=== PATIENT | male | born 1990 | race Two or more races ===

== ENCOUNTER 2025-01-14 09:32 | Emergency (ER) | payer OTHER ==
[~2025-01-14] VITALS: Ht 180.3 cm; Wt 97.5 kg
[2025-01-14] MEDS ORDERED: ADULT LOW DOSE81 M1 (10:32)
[2025-01-14] MEDS ORDERED: ORALONE5 GM TOP (10:54)
[2025-01-14] MEDS ORDERED: METHYLPREDNISOLONE SOD SUCC 40 MG VIAL ONE (10:54)
[2025-01-14] MEDS ORDERED: METHYLPREDNISOLONE SOD SUCC 40 MG VIAL IM ONE (11:00)
== END 2025-01-14 11:07 | disposition home or self-care (01) ==
LOC: ER 09:32
DX: R21 Rash and other nonspecific skin eruption (principal); L20.89 Other atopic dermatitis

== ENCOUNTER 2025-03-10 19:44 | Emergency (ER) | payer OTHER ==
[~2025-03-10] VITALS: Ht 180.3 cm; Wt 99.8 kg
[~2025-03-10 19:44] MED LIST: ADULT LOW DOSE81 M1; ORALONE5 GM TOP
[2025-03-10] MEDS ORDERED: VENOFLASH (19:59)
[2025-03-10] MEDS ORDERED: ENOXAPARIN SODIUM 100 MG/ML SYRINGE SUBCUTANEO SCH (22:05)
[2025-03-10] MEDS ORDERED: RIVAROXABAN 15 MG TABLET PO ONE (22:30)
[2025-03-11] MEDS ORDERED: NORFLEX100MG PO (16:08)
[2025-03-11] MEDS ORDERED: XYZAL5 MG PO (22:17)
== END 2025-03-10 22:49 | disposition left against medical advice (07) ==
LOC: ER 19:44
DX: M25.571 Pain in right ankle and joints of right foot (principal); Z88.8 Allergy status to other drugs, medicaments and biological substances; Z86.72 Personal history of thrombophlebitis

== ENCOUNTER 2025-03-11 13:28 | Emergency (ER) | payer OTHER ==
[~2025-03-11] VITALS: Ht 180.3 cm; Wt 99.8 kg
[~2025-03-11 13:28] MED LIST changes: +VENOFLASH
[2025-03-11] MEDS ORDERED: KETOROLAC TROMETHAMINE 60 MG VIAL IM ONE (14:00)
[2025-03-11] MEDS ORDERED: NORFLEX100MG PO (16:08)
[2025-03-11] MEDS ORDERED: XYZAL5 MG PO (22:17)
== END 2025-03-11 16:07 | disposition home or self-care (01) ==
LOC: ER 13:28
DX: M25.571 Pain in right ankle and joints of right foot (principal); I80.211 Phlebitis and thrombophlebitis of right iliac vein

== ENCOUNTER 2025-03-11 18:40 | Emergency (ER) | payer OTHER ==
[~2025-03-11] VITALS: Ht 180.3 cm; Wt 99.8 kg
[~2025-03-11 18:40] MED LIST changes: +NORFLEX100MG PO
[2025-03-11] MEDS ORDERED: DIPHENHYDRAMINE HCL 50 MG/ML VIAL 1ML IM STA (22:13)
[2025-03-11] MEDS ORDERED: XYZAL5 MG PO (22:17)
== END 2025-03-11 22:13 | disposition home or self-care (01) ==
LOC: ER 18:40
DX: T78.49XA Other allergy, initial encounter (principal); Z88.8 Allergy status to other drugs, medicaments and biological substances